=== PATIENT | female | born 1965 | race Two or more races ===

== ENCOUNTER 2023-07-13 13:24 | Emergency (ER) | payer OTHER, SELFPAY ==
[2023-07-13 13:57] VITALS: BP 130/70; PULSE 66; RESP 16; TEMP 36.3; O2SAT 100
--- NOTE | 2023-07-13 15:20 | ED.GENADULT ---
HPI - General Adult General Chief complaint: Dental/Oral Stated complaint: Dental Pain Source: patient and family Mode of arrival: ambulatory Limitations: language barrier History of Present Illness HPI narrative: Patient brought in by son with reports of left upper dental pain for last 3 days. Pain is constant, without descriptive quality, rated 6/10 severity. No fever, chills, nausea, vomiting, sore throat or otalgia. she is not taking any medication to assist with her symptoms. She does not smoke. Related Data Allergies Allergy/AdvReac Type Severity Reaction Status Date / Time No Known Allergies Allergy Verified 07/13/23 13:50 Review of Systems Review of Systems: CONSTITUTIONAL: Denies fever, chills, or sweats. EYES: Denies visual changes, redness, or discharge. ENT: Reports left upper dental pain. Denies rhinorrhea, congestion, sore throat, or otalgia. CARDIOVASCULAR: Denies chest pain, palpitations, or edema. RESPIRATORY: Denies cough or dyspnea. GASTROINTESTINAL: Denies abdominal pain, nausea, vomiting, or diarrhea. GENITOURINARY: Denies dysuria or hematuria. SKIN: Denies rash or itching. MUSCULOSKELETAL: Denies back pain, joint pain, or myalgia. NEUROLOGIC: Denies headache, numbness, dizziness, or weakness. PSYCHIATRIC: Denies anxiety or depression. [facility] Past Medical History Medical History No pertinent past medical history Surgical History Surgical History No pertinent past surgical history Family History Family History Mother Family history non-contributory Social History Social History Smoking status: Never smoker Substance use: never Living arrangements: with family Gender identity (if verbalized by the patient): Female Sexual Orientation (if Verbalized by the Patient): Straight or Heterosexual Spiritual care concerns: No Exam Narrative: GENERAL: Well-appearing, well-nourished, and in no acute distress. HEAD: Normocephalic, atraumatic. EYES: PERRLA and EOMI. ENT: Nares clear, no rhinorrhea or epistaxis. Mucous membranes moist. There for several fractured teeth eroded to the gumline. There are also several absent teeth. There is no visible or palpable abscess in the gumline. Oropharynx without tonsillar hypertrophy exudate or other lesions. Bilateral TMs pearly coppola nonbulging NECK: Supple. No adenopathy or masses. No carotid bruits or JVD CHEST: Clear to auscultation. No respiratory distress. No wheezes rales or rhonchi HEART: Regular rate and rhythm. No murmur heard. Normal peripheral pulses. ABDOMEN: Soft, nontender, nondistended, normal active bowel sounds. EXTREMITIES: Normal range of motion. No edema. SKIN: Warm, dry, no rash. NEURO: No focal deficits. Alert and oriented x3. PSYCH: Normal mood and affect. Course Course Emergency Course: This is a 57-year-old female who presented for evaluation of left upper dental pain. She has several fractures and absent teeth. I do not appreciate a drainable fluid collection. Will discharge with antibiotics and ibuprofen. Increase hydration. Follow up with dentist. Go to the ER for worsening symptoms. Patient and son in agreement with plan of care. Level of Care: Express Care Visit Vital Signs Vital signs: Vital Signs Temperature 36.3 C L 07/13/23 13:57 Pulse Rate 66 07/13/23 13:57 Respiratory Rate 16 07/13/23 13:57 Blood Pressure 130/70 07/13/23 13:57 Pulse Oximetry 100 07/13/23 13:57 Oxygen Delivery Room Air 07/13/23 13:57 Temperature 36.3 C L 07/13/23 13:57 Pulse Rate 66 07/13/23 13:57 Respiratory Rate 16 07/13/23 13:57 Blood Pressure 130/70 07/13/23 13:57 Pulse Oximetry 100 07/13/23 13:57 Oxygen Delivery Room Air
== END 2023-07-13 15:20 | disposition home or self-care (01) ==
PROVIDERS: Emergency Provider Nurse Practitioner
DX: S02.5XXA Fracture of tooth (traumatic), initial encounter for closed fracture (principal); X58.XXXA Exposure to other specified factors, initial encounter
CPT/HCPCS: 99213; G0463